=== PATIENT | female | born 1975 | race Two or more races ===

== ENCOUNTER 2022-03-30 16:30 | Outpatient (CLI) | payer OTHER | END 2022-03-30 16:35 | disposition home or self-care (01) | LOC: RAD 16:30 | DX: S92.591A Other fracture of right lesser toe(s), initial encounter for closed fracture (principal) ==

== ENCOUNTER 2022-05-05 16:40 | Outpatient (CLI) | payer OTHER | END 2022-05-05 16:43 | disposition home or self-care (01) | LOC: RAD 16:40 | DX: S92.514A Nondisplaced fracture of proximal phalanx of right lesser toe(s), initial encounter for closed fracture (principal) ==

== ENCOUNTER 2022-06-11 09:06 | Outpatient (CLI) | payer OTHER | END 2022-06-11 09:14 | disposition home or self-care (01) | LOC: TOM 09:06 | PROVIDERS: ATTEND Specialist | DX: K59.00 Constipation, unspecified (principal); K56.609 Unspecified intestinal obstruction, unspecified as to partial versus complete obstruction ==

== ENCOUNTER 2023-11-10 14:45 | Outpatient (CLI) | payer OTHER | END 2023-11-10 14:57 | disposition home or self-care (01) | LOC: RAD 14:45 | DX: K59.02 Outlet dysfunction constipation (principal) ==

== ENCOUNTER 2023-12-22 07:40 | Outpatient (CLI) | payer OTHER | END 2023-12-22 07:41 | disposition home or self-care (01) | LOC: NUCLEAR 07:40 | DX: K31.84 Gastroparesis (principal) ==

== ENCOUNTER 2025-04-30 16:04 | Outpatient (CLI) | payer OTHER | END 2025-04-30 16:17 | disposition home or self-care (01) | LOC: RAD 16:04 | PROVIDERS: ATTEND Internal Medicine | DX: R07.89 Other chest pain (principal); M70.22 Olecranon bursitis, left elbow ==

== ENCOUNTER 2025-05-02 14:53 | Outpatient (CLI) | payer OTHER | END 2025-05-02 15:01 | disposition home or self-care (01) | LOC: MAMO-SONO 14:53 | PROVIDERS: ATTEND Obstetrics & Gynecology | DX: N60.11 Diffuse cystic mastopathy of right breast (principal); N60.12 Diffuse cystic mastopathy of left breast ==

== ENCOUNTER 2025-05-22 11:53 | Outpatient (CLI) | payer OTHER | END 2025-05-22 11:57 | disposition home or self-care (01) | LOC: MRI 11:53 | PROVIDERS: ATTEND Orthopaedic Surgery | DX: M25.512 Pain in left shoulder (principal) | CPT/HCPCS: 73221 ==